=== PATIENT | male | born 1960 | race Caucasian/White ===

== ENCOUNTER 2019-09-07 11:04 | Outpatient (CLI) | payer MEDICARE, MEDICAID, SELFPAY ==
--- NOTE | 2019-09-07 11:10 | CT_ITS ---
WS: [id number] CT LUNG CANCER SCREENING DLP: 108.63 mGy.cm DIvol: 2.59 mGy CLINICAL INFORMATION SCREENING VISIT: Baseline COMPARISON: CTA chest 03/04/2018 FINDINGS Diagnostic quality: Satisfactory Comments: None. Lung Nodules: New bandlike area of consolidation at the LEFT apex measures 1.7 x 0.5 cm. Mean diamete r of 1.1 cm. There is adjacent pleural thickening and tagging. 4 mm nodule subpleural RIGHT upper lob e, image 221 of series 4. Additional subpleural nodules anterior LEFT upper lobe, image 228 of series 4. 5 mm nodule anterior LEFT upper lobe image 330 series 4. Nodular pleural thickening measures 5 mm inferior aspect of the RIGHT major fissure. Bandlike area of chronic atelectasis at the RIGHT lung b ase was present on the study of 03/04/2018. Endotracheal soft tissue anteriorly into the RIGHT. May be retained mucous secretions. Lungs: Severe emphysema. Marked hyperexpansion. Heart: Normal size heart. Other findings: Small pericardial effusion. Benign lymph nodes at the LEFT hilum. Mild atherosclerosi s aorta. Small hiatal hernia. Hepatic and splenic granulomata. CT/CT lung screening [id number] IMPRESSION: LUNG-RADS: 4BS-Suspicious with Significant Findings FOLLOW UP: 3 Month LDCT Alternatively PET CT can be performed. 1.Severe chronic emphysema. 2. Additional endotracheal soft tissue may be mucous secretions. This can be fu rther evaluated by PET CT or three-month follow-up.
== END 2019-09-07 11:05 | disposition home or self-care (01) ==
LOC: RAD 11:08
PROVIDERS: PCP Nurse Practitioner Family; Visit Provider Nurse Practitioner Family
DX: Z12.2 Encounter for screening for malignant neoplasm of respiratory organs (principal); F17.210 Nicotine dependence, cigarettes, uncomplicated; J43.9 Emphysema, unspecified
CPT/HCPCS: G0297

== ENCOUNTER 2019-09-17 14:52 | Outpatient (CLI) | payer MEDICARE, MEDICAID, SELFPAY ==
--- NOTE | 2019-09-17 14:56 | XR_ITS ---
WS: [id number] SCREENING DEXA SCAN [employer] HISTORY: 59 years old Male with OTHER SPECIFIED DISORDER OF BONE DENSITY STRUCTURES COMPARISON: None available. FINDINGS: The L1-L4 bone mineral density measures 0.990 g/cm2. This corresponds to a T score of -1.9 and Z scor e of -0.7. Left femoral neck bone mineral density measures 0.687 g/cm2. This corresponds to T score of -2.9 and Z score of -1.9. Right femoral neck bone mineral density measures 0.660 g/cm2. This corresponds to a T score of -3.1 a nd Z score of -2.0. Mean femoral neck bone mineral density measures 0.674 g/cm2. This corresponds to a T score of -3.0 an d Z score of -2.0. XR/XR DEXA axial skeleton* [id number] IMPRESSION: Patient's FRAX calculated 10 year probability for major osteoporotic fracture i s 21.2% and osteoporotic hip fracture is 12.5%. Osteopenic porosis changes are noted.
== END 2019-09-17 14:53 | disposition home or self-care (01) ==
LOC: RADWPI 14:55
PROVIDERS: PCP Nurse Practitioner Family; Visit Provider Nurse Practitioner Family
DX: M89.8X9 Other specified disorders of bone, unspecified site (principal)
CPT/HCPCS: 77080

== ENCOUNTER → 2019-10-13 08:19 | Outpatient (BNVA) | payer MEDICARE, MEDICAID, SELFPAY | PROVIDERS: PCP Nurse Practitioner Family; Referring Provider Nurse Practitioner Family; Visit Provider Specialist | DX: G43.101 Migraine with aura, not intractable, with status migrainosus (principal); G43.909 Migraine, unspecified, not intractable, without status migrainosus; H53.9 Unspecified visual disturbance | CPT/HCPCS: 99203; 99204 ==

== ENCOUNTER → 2019-10-21 07:59 | Outpatient (BNVA) | payer MEDICARE, MEDICAID, SELFPAY | PROVIDERS: PCP Nurse Practitioner Family; Referring Provider Specialist; Visit Provider Specialist | DX: R56.9 Unspecified convulsions (principal); H53.9 Unspecified visual disturbance | CPT/HCPCS: 95816 ==

== ENCOUNTER 2019-10-28 14:25 | Outpatient (CLI) | payer MEDICARE, MEDICAID, SELFPAY ==
--- NOTE | 2019-10-28 15:00 | USCV_ITS ---
Mendoza Munroe Age: 59 Gender: M : 1960 Exam Date: 10/28/2019 14:37 Ordering Phys: Jazz Rucker MD Technologist: Shima Chicas Exam Location: [facility] [place] Indication: Visual Disturbances Risk Factors: None Previous Vascular Surgery: None Right Brachial BP: / Left Brachial BP: / Right Left Velocity (cm/s) Spectral Plaque Velocity (cm/s) Spectral Plaque Syst/Diast Broadening Syst/Diast Broadening 83.20/ 26.00 Prox CCA 73.10 / 21.00 62.60/ 22.30 Mid CCA 60.50 / 23.50 53.80/ 18.70 Distal CCA 64.70 / 23.50 66.70/ 15.40 Prox ICA 53.60 / 24.10 38.10/ 21.00 Mid ICA 64.50 / 29.50 59.30/ 29.30 Distal ICA 56.10 / 27.80 72.20 ECA 53.90 1.06 ICA/CCA 1.07 Antegrade Vertebral Antegrade 28.60/ 12.50 cm/s 42.70/ 16.30 cm/s Tri Subclavian Tri 76.50 96.60 CONCLUSIONS Right ICA stenosis <50%. Left ICA stenosis <50%. Normal antegrade Doppler flow noted in the right vertebral artery. Normal antegrade Doppler flow noted in the left vertebral artery. Lino Day MD (Electronically Signed) Final Date: 28 October 2019 15:42 S
== END 2019-10-28 14:26 | disposition home or self-care (01) ==
LOC: US 14:26
PROVIDERS: PCP Nurse Practitioner Family; Visit Provider Specialist
DX: H53.9 Unspecified visual disturbance (principal); I65.23 Occlusion and stenosis of bilateral carotid arteries
CPT/HCPCS: 93880

== ENCOUNTER → 2019-12-11 09:49 | Outpatient (BNVA) | payer MEDICARE, MEDICAID, SELFPAY | PROVIDERS: PCP Nurse Practitioner Family; Visit Provider Internal Medicine | DX: Z11.59 Encounter for screening for other viral diseases (principal) | CPT/HCPCS: 87635 ==

== ENCOUNTER 2020-01-12 11:00 | Outpatient (CLI) | payer MEDICARE, MEDICAID, SELFPAY | END 2020-01-12 11:01 | disposition home or self-care (01) | LOC: SLEEP 01-21 11:22 | PROVIDERS: PCP Nurse Practitioner Family; Visit Provider Internal Medicine Critical Care Medicine | DX: J44.9 Chronic obstructive pulmonary disease, unspecified (principal) | CPT/HCPCS: 94762 ==

== ENCOUNTER 2020-07-01 15:30 | Outpatient (CLI) | payer MEDICARE, MEDICAID, SELFPAY ==
--- NOTE | 2020-07-01 | CT_ITS ---
WS: [id number] CT scan of the chest with IV contrast, additional two-dimensional coronal and sagittal reconstruction was performed. 07/01/2020 Clinical Data: ABNORMAL LUNG SCREENING Comparison: CT lung screening, 09/07/2019 DLP: 688.55 mGy-cm All CT scans at [facility] use at least one of these dose optimization techniques: automat ed exposure control; mA and/or kV adjustment per patient size (includes targeted exams where dose is matched to clinical indication); or iterative reconstruction. Findings: No masses or effusions are seen. There is a scar in the left upper lobe corresponding to the region n oted on the prior scan. There is a small nodule measuring 0.5 cm seen best on image 51 of 83 on the f issure between the right middle lobe and the right lower lobe. The heart size is normal with no peric ardial effusion. Emphysematous changes seen throughout the lungs. The pulmonary arterial system and t horacic aorta demonstrate no abnormalities or dilatations. There is no axillary or significant medias tinal adenopathy. The upper abdomen shows no abnormalities. CT/CT chest w con* [id number] Impression: 1. Left upper lobe scar. 2. Severe emphysematous change. 3. 0.5 cm nodule between the right middle lobe and right lower lobe unchanged.
[2020-07-01 16:12] LABS: Blood Urea Nitrogen 10 mg/dL (8-23)
[2020-07-01] MEDS: iohexol 300 mg/mL 100 mL Btl IV (16:12)
[2020-07-01 16:13] LABS: Glomerular Filtration Rate 98.3 mL/min (90-130)
== END 2020-07-01 15:31 | disposition home or self-care (01) ==
LOC: RADWPI 15:36
PROVIDERS: PCP Nurse Practitioner Family; Visit Provider Nurse Practitioner Family
DX: R91.8 Other nonspecific abnormal finding of lung field (principal); R91.1 Solitary pulmonary nodule
CPT/HCPCS: 71260; 82565; 84520; Q9967

== ENCOUNTER 2021-04-20 14:00 | Outpatient (CLI) | payer MEDICARE, MEDICAID, SELFPAY | END 2021-04-20 14:01 | disposition home or self-care (01) | LOC: SLEEP 05-01 12:28 | PROVIDERS: PCP Nurse Practitioner Family; Visit Provider Nurse Practitioner Family | DX: G47.10 Hypersomnia, unspecified (principal); G47.33 Obstructive sleep apnea (adult) (pediatric) | CPT/HCPCS: G0399 ==